=== PATIENT | male | born 1950 | race Caucasian/White ===

== ENCOUNTER 2018-08-05 13:41 | Outpatient (CLI) | payer MEDICARE ==
--- NOTE | 2018-08-05 16:43 | MRI ---
MRI LUMBAR SPINE WITH AND WITHOUT CONTRAST: INDICATIONS: Bilateral leg pain. COMPARISON: MRI lumbar spine without contrast, dated 06/12/2016. FINDINGS: There is stable grade 1 anterolisthesis of L4 and L5. There is stable post procedural change of lami nectomies at L4-L5 and a laminotomy at L3-L4. At the L5-S1 level, there has been interval development of an anterior and medially projecting synovi al cyst, protruding from the anterior medial margin of the right L5-S1 facet complex, measuring 1 cm, on image 47 of series 6. This causes moderate to severe narrowing of the right lateral recess, with potential for impingement of the traversing right L5 nerve root. There is advanced facet joint dege nerative change on the right and moderate on the left. There is no appreciable neural foraminal narr owing. At L4-L5, there is a broad-based bulge with facet hypertrophy, inducing stable, mild central canal na rrowing. The loss of disk space height, in addition to the broad-based disk bulge, induces moderate bilateral neural foraminal narrowing, which is stable to the prior exam. This is slightly greater on the left, just stable to the prior exam. At L3-L4, there is a broad-based disk bulge with a superimposed right paracentral protrusion that is stable to the prior exam, causing mild central canal narrowing with mild bilateral neural foraminal n arrowing. At L2-L3, there is a broad-based bulge with facet hypertrophy, inducing mild bilateral neural foramin al narrowing. This is stable to the prior exam. At L1-L2, there is a 2.4 x 0.6 cm T2 hyperintense, T1 hypointense, nonenhancing lesion within the rig ht posterolateral epidural space, extending out the neural foramina, on the right, at L1-L2. 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 The meningeal cyst is causing some moderat e mass effect on the exiting right L1 nerve root that appears similar to the prior exam. T12-L1: There is a mild broad-based disk bulge but no appreciable central canal or neural foraminal narrowing. IMPRESSION: 1. Interval development of anteromedially projecting synovial cyst from the right L5-S1 facet comple x, causing moderate to severe narrowing of the right lateral recess, with potential for impingement o f the traversing right L5 nerve root. 2. 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 This is causing moderate narrowing of the right L1-L2 neural foramina, that appears stable. 3. The moderate bilateral neural foraminal narrowing at L4-L5 is stable. 4. The mild bilateral neural foraminal narrowing at L3-L4 is similar appearing. 5. Mild central canal narrowing at L4-L5 is similar. POS: ARIANNA
== END 2018-08-05 13:42 | disposition home or self-care (01) ==
LOC: TBSIIMAG 13:41
PROVIDERS: ATTEND Anesthesiology Pain Medicine
DX: M51.16 Intervertebral disc disorders with radiculopathy, lumbar region (principal); M48.061 Spinal stenosis, lumbar region without neurogenic claudication; M71.38 Other bursal cyst, other site
CPT/HCPCS: 72158; 82565

== ENCOUNTER 2019-08-13 05:45 | Day surgery (SDC) | payer MEDICARE ==
[2019-08-12 10:35] VITALS: BMI 39.4
--- NOTE | 2019-08-12 13:20 | HP ---
HISTORY OF PRESENT ILLNESS: The patient is a 69-year-old male with several month history of pain and numbness in the median nerve distribution of both hands, left much greater than right without injury. He has had persistent symptoms despite rest, restriction of activities, and splinting. The symptoms are worse at night. He is not able to tolerate NSAIDs due to anaphylaxis. PAST MEDICAL HISTORY: The patient has history of diabetes, high cholesterol, hypothyroidism, and atrial fibrillation. He is currently not on anticoagulants. CURRENT MEDICATIONS: Include; 1. Metformin. 2. Synthroid. 3. Amiodarone. 4. Crestor. 5. Multivitamins. 6. Victoza. 7. Potassium. 8. Losartan. 9. Montelukast. 10. Loratadine. 11. Flomax. 12. Cialis. 13. Levothyroxine. 14. Gabapentin. ALLERGIES: HE IS ALLERGIC TO ALEVE AND NSAIDS, WHICH CAUSE ANAPHYLAXIS. CODEINE CAUSES NAUSEA. FAMILY HISTORY: Otherwise, unremarkable. SOCIAL HISTORY: Otherwise, unremarkable. REVIEW OF SYSTEMS: Otherwise, unremarkable. PHYSICAL EXAMINATION: GENERAL: Reveals a healthy male. HEENT: Unremarkable. NECK: Supple. CHEST: Clear. HEART: Regular rate and rhythm. ABDOMEN: Soft and nontender. RECTAL: Deferred. GENITAL: Deferred. EXTREMITIES: Pertinent findings to his wrists, there is no swelling. There is slight thenar atrophy on the left. No obvious atrophy of the right. There is no bony tenderness on the left side. There is tenderness over the median nerve. There is full range of motion bilaterally. There is mild stiffness of the fingers of the left hand. There is slight weakness of opposition on the left thumb. There is a positive Tinel's sign over the carpal tunnel and positive Phalen's test and pain with direct compression over the carpal tunnel on the left wrist. On the right side, there is pain with compression of the median nerve and equivocal Tinel's sign and equivocal Phalen's test. There is subjective numbness in the median nerve distribution bilaterally, left greater than right. There is good capillary refill. Electrodiagnostic studies performed by Dr. Yap reveal bilateral carpal tunnel syndrome, left greater than right. IMPRESSION: 1. Bilateral carpal tunnel syndrome, left greater than right. 2. Diabetes. 3. History of atrial fibrillation. 4. History of hypertension. 5. History of thyroid replacement. PLAN: Endoscopic possible open left carpal tunnel release. He may eventually require similar procedure on the right wrist. Nature of the surgery, length of recovery, and potential complications such as infection, loss of motion, incomplete relief, nerve injury, recurrence, need for additional treatment and repeat surgery have been discussed in detail. Job ID: [id number]
[2019-08-13 06:30] LABS: #Eosinphils 0.2 thou/uL (0.0-0.7); #Lymphocytes 2.2 thou/uL (1.20-3.40); #Monocytes 0.8 thou/uL (0.11-0.59); #Neutrophils 4.1 thou/uL (1.40-6.50); %Basophils 0.7 % (0.0-1.0); %Eosinophils 3.1 % (0.0-10.0); %Lymphocytes 29.5 % (21.0-51.0); %Monocytes 11.3 % (0.0-10.0); %Neutrophils 55.4 % (42.0-75.0); Hemoglobin 15.6 g/dL (14.0-18.0); Mean Corpuscular HGB CONC 32.5 g/dL (32.0-36.0); Mean Corpuscular Hemoglobin 32.9 pg (27.0-31.0); Mean Platelet Volume 7.2 fL (7.4-10.4); Platelet Count 268 thou/uL (130-400); RBC Distribution Width 12.7 % (11.5-14.5); Red Blood Cell (RBC) Count 4.73 mill/uL (4.70-6.10); White Blood Cell (WBC) Count 7.3 thou/uL (4.8-10.8)
[2019-08-13 06:46] LABS: Anion Gap 14 mmol/L (10-20); BUN (Urea Nitrogen) 9 mg/dL (8.4-25.7); Calc. Creatinine Clearance 154 mL/min (70-130); Carbon Dioxide 26 mmol/L (23-31); Chloride 102 mmol/L (98-107); Estimated GFR-MDRD Greater than 90; Glucose 117 mg/dL (80-115); Potassium 3.8 mmol/L (3.5-5.1); Sodium 138 mmol/L (136-145)
[2019-08-13] MEDS ORDERED: Lidocaine 1% (PF) 30 ML VIAL ONE (06:55)
[2019-08-13] MEDS ORDERED: Ketamine 50 MG/ML (10ML VIAL) ONE (07:28)
[2019-08-13] MEDS ORDERED: Propofol 500 MG/50 ML VIAL ONE (07:28)
[2019-08-13] MEDS ORDERED: Fentanyl 100 MCG/2 ML VIAL ONE (07:28)
[2019-08-13] MEDS ORDERED: Midazolam HCl 2 mg/2 ml Vial ONE (07:28)
--- NOTE | 2019-08-13 11:47 | OP ---
DATE OF PROCEDURE: 08/13/2019 PREOPERATIVE DIAGNOSIS: Left carpal tunnel syndrome. POSTOPERATIVE DIAGNOSIS: Left carpal tunnel syndrome. PROCEDURE PERFORMED: Left endoscopic carpal tunnel release. ANESTHESIA: Local plus TIVA. DESCRIPTION OF PROCEDURE: After satisfactory anesthesia was induced in supine position, the patient was prepped and draped in routine manner. A field block was accomplished with 1% plain lidocaine 10 mL. The left arm was elevated and exsanguinated with an Esmarch bandage and the tourniquet inflated to 250 mmHg. A 2-cm transverse incision was made at the proximal wrist flexion crease. This was carried down through the subcutaneous tissues and bleeding points were controlled with cautery. Using sharp and blunt dissection, a distally-based flap at the deep forearm fascia was developed and retracted distally. Palmaris longus tendon was retracted radially. The proximal edge of the deep forearm fascia was split under direct visualization with small scissors to make sure there was no proximal impingement of the median nerve. Synovial elevator was introduced beneath the transverse carpal ligament and the synovium cleaned from the under surface. Carpal tunnel dilators were inserted. The Epip[employer]tee endoscopic carpal tunnel system was introduced beneath the transverse carpal ligament in line with the ring finger. The distal edge of the ligament was easily identified and divided in a distal to proximal direction by pulling the trigger of the assembly, engaging the knife and withdrawing the scope proximally. This was done at several stages to make sure there was complete division of the transverse carpal ligament, which was documented with video printer. After withdrawing the scope, the carpal tunnel dilator could be inserted into the carpal tunnel and there was markedly improved passage and subcutaneous position of the instrument. The scope was reintroduced into the carpal tunnel. There was wide separation of the 2 leaves of the transverse carpal ligament. The tourniquet was released after 7 minutes. There was no excessive bleeding and the scope was withdrawn. The wound was thoroughly irrigated and then closed with running subcuticular 3-0 nylon. A sterile dressing was applied. The patient immobilized in a Velcro wrist splint. He was awakened and taken from the operating room in stable condition. There were no apparent intraoperative complications. The estimated blood loss was negligible. The patient will be discharged home in satisfactory condition, instructed on ice and elevation, given written wound care instructions. He was given a prescription for tramadol for pain, 20 tablets with one refill. He will be rechecked in my office in approximately 2 weeks or sooner if there are any problems prior to that times. Job ID: [id number]
== END 2019-08-13 09:58 | disposition home or self-care (01) ==
LOC: SDC 05:45
PROVIDERS: ATTEND Orthopaedic Surgery
PROC: 01N54ZZ Release Median Nerve, Percutaneous Endoscopic Approach (ICD-10-PCS; principal; 2019-08-13)
DX: G56.03 Carpal tunnel syndrome, bilateral upper limbs (principal); E11.9 Type 2 diabetes mellitus without complications; E78.00 Pure hypercholesterolemia, unspecified; E78.5 Hyperlipidemia, unspecified; E03.9 Hypothyroidism, unspecified; I48.91 Unspecified atrial fibrillation; I10 Essential (primary) hypertension; G47.30 Sleep apnea, unspecified; M19.90 Unspecified osteoarthritis, unspecified site; Z87.891 Personal history of nicotine dependence; Z79.84 Long term (current) use of oral hypoglycemic drugs; Z79.899 Other long term (current) drug therapy; Z88.5 Allergy status to narcotic agent; Z88.6 Allergy status to analgesic agent; Z99.89 Dependence on other enabling machines and devices
CPT/HCPCS: 36415; 80048; 85025; 93005; 93010; J0690; J2001; J2250; J2704; J3010

== ENCOUNTER 2019-11-14 07:06 | Outpatient (CLI) | payer MEDICARE, OTHER ==
[2019-11-14 13:51] LABS: #Basophils 0.1 thou/uL (0.0-0.2); #Eosinphils 0.1 thou/uL (0.0-0.7); #Lymphocytes 1.7 thou/uL (1.20-3.40); #Monocytes 0.8 thou/uL (0.11-0.59); #Neutrophils 5.1 thou/uL (1.40-6.50); %Basophils 0.7 % (0.0-1.0); %Eosinophils 1.6 % (0.0-10.0); %Lymphocytes 22.1 % (21.0-51.0); %Monocytes 10.1 % (0.0-10.0); %Neutrophils 65.5 % (42.0-75.0); Hemoglobin 16.6 g/dL (14.0-18.0); Mean Corpuscular HGB CONC 32.9 g/dL (32.0-36.0); Mean Corpuscular Hemoglobin 32.8 pg (27.0-31.0); Mean Corpuscular Volume 99.4 fL (78.0-98.0); Mean Platelet Volume 7.8 fL (7.4-10.4); Platelet Count 253 thou/uL (130-400); RBC Distribution Width 13.1 % (11.5-14.5); Red Blood Cell (RBC) Count 5.06 mill/uL (4.70-6.10); White Blood Cell (WBC) Count 7.8 thou/uL (4.8-10.8)
[2019-11-14 14:06] LABS: Anion Gap 15 mmol/L (10-20); BUN (Urea Nitrogen) 12 mg/dL (8.4-25.7); Calc. Creatinine Clearance 0 mL/min (70-130); Calcium 10.5 mg/dL (7.8-10.44); Carbon Dioxide 30 mmol/L (23-31); Chloride 99 mmol/L (98-107); Estimated GFR-MDRD 74; Glucose 107 mg/dL (80-115); Potassium 4.1 mmol/L (3.5-5.1); Sodium 140 mmol/L (136-145)
[2019-11-15 17:08] LABS: SARS-CoV-2 MS2 Positive; SARS-CoV-2 N Gene Negative; SARS-CoV-2 S Gene Negative; SARS-CoV-2 orf1ab Negative
--- NOTE | 2019-11-16 16:42 | EKG ---
Test Reason : Blood Pressure : / mmHG Vent. Rate : 094 BPM Atrial Rate : 094 BPM P-R Int : 000 ms QRS Dur : 096 ms QT Int : 382 ms P-R-T Axes : 000 071 038 degrees QTc Int : 477 ms Atrial fibrillaiton with premature ventricular complexes or aberrantly conducted complexes Otherwise normal ECG Confirmed by NINA BARLOW (2) on 11/16/2019 4:42:16 PM Referred By: Confirmed By:NINA BARLOW
== END 2019-11-14 07:07 | disposition home or self-care (01) ==
LOC: LABBT 07:06
PROVIDERS: ATTEND Orthopaedic Surgery
DX: Z01.818 Encounter for other preprocedural examination (principal); Z11.59 Encounter for screening for other viral diseases; G56.01 Carpal tunnel syndrome, right upper limb
CPT/HCPCS: 80048; 85025; 93005; U0003; 87635; 93010

== ENCOUNTER 2019-11-19 08:18 | Day surgery (SDC) | payer MEDICARE ==
[2019-11-14 12:47] VITALS: BMI 39.4
--- NOTE | 2019-11-18 13:38 | HP ---
HISTORY OF PRESENT ILLNESS: The patient is a 69-year-old male with a several month history of bilateral carpal tunnel syndrome unresponsive to conservative treatment. He underwent endoscopic left carpal tunnel release 3 months ago with good results, but continues to have symptoms of pain and tingling in his right hand despite restriction of activities and splinting. He is unable to tolerate NSAIDs because of anaphylaxis. PAST MEDICAL HISTORY: Please see the old chart. The patient also has diabetes, thyroid replacement, hypertension, and atrial fibrillation. CURRENT MEDICATIONS: 1. Metformin. 2. Synthroid. 3. . 4. Crestor. 5. Multivitamins. 6. Potassium. 7. Losartan. 8. Montelukast. 9. Loratadine. 10. Flomax. 11. Lasix. 12. Levothyroxine. 13. Gabapentin. ALLERGIES: HE IS ALLERGIC TO NSAIDS, WHICH CAUSE ANAPHYLAXIS AND CODEINE, WHICH CAUSES NAUSEA. PHYSICAL EXAMINATION: GENERAL: Reveals a healthy male. HEENT: Unremarkable. NECK: Supple. CHEST: Clear. HEART: Regular rate and rhythm. ABDOMEN: Soft and nontender. RECTAL: Deferred. GENITAL: Deferred. EXTREMITIES: Pertinent findings related to his right wrist; there is no swelling or atrophy. There is no bony tenderness. There is full range of motion. There is tenderness to palpation over the median nerve. There is equivocal Tinel sign and equivocal Phalen test. in the median nerve distribution. There is good capillary refill and good distal pulse. ELECTRODIAGNOSTIC STUDIES: Positive for bilateral carpal tunnel syndrome, left greater than right. IMPRESSION: 1. Right carpal tunnel syndrome. 2. Status post left carpal tunnel release. 3. History of diabetes. 4. History of atrial fibrillation. 5. 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 PLAN: Endoscopic possible open right carpal tunnel release. The nature of the surgery, length of recovery, and potential complications such as infection, loss of motion, incomplete relief, nerve injury, recurrence, need for additional treatment and repeat surgery have been discussed in detail. Job ID: [id number]
[2019-11-19] MEDS ORDERED: Fentanyl 100 MCG/2 ML VIAL ONE ×2 (10:21→11:39)
[2019-11-19] MEDS ORDERED: PROPOFOL 200 MG/20 ML VIAL ONE (11:51)
--- NOTE | 2019-11-19 11:56 | OP ---
DATE OF PROCEDURE: 11/19/2019 ANESTHESIA: General. PREOPERATIVE DIAGNOSIS: Right carpal tunnel syndrome. POSTOPERATIVE DIAGNOSIS: Right carpal tunnel syndrome. PROCEDURE PERFORMED: Right endoscopic carpal tunnel release. DESCRIPTION OF PROCEDURE: After satisfactory anesthesia was induced in supine position, the patient was prepped and draped in routine manner. The right arm was elevated and exsanguinated with an Esmarch bandage and the tourniquet inflated to 250 mmHg. A 2 cm transverse incision was made in the proximal wrist flexion crease, carried down through subcutaneous tissues and bleeding points were controlled with Bovie cautery. Using sharp and blunt dissection, a distally based flap at the deep forearm fascia was developed and retracted distally. Palmaris longus tendon was retracted radially. Proximal edge of the deep forearm fascia was split under direct visualization, making sure there was no proximal impingement of the median nerve. Synovial elevator was introduced beneath the transverse carpal ligament and the synovium cleaned from the under surface. Carpal tunnel dilators were inserted. The [place] endoscopic carpal tunnel system was introduced beneath the transverse carpal ligament inline with the ring finger. The distal edge of the ligament was easily identified and then divided in a distal to proximal direction by pulling the trigger of the assembly and engaging the knife and withdrawing the scope proximally. This was done in several stages to make sure there was complete division of the transverse carpal ligament, which was documented with the video printer. After withdrawing the scope, a carpal tunnel dilator could be inserted in the carpal tunnel. There was markedly improved passage and subcutaneous position of the instrument. The scope was reintroduced into the carpal tunnel. There was wide separation of the 2 leaves of the transverse carpal ligament. The tourniquet was released after 6 minutes. There was no excessive bleeding and the scope was withdrawn. The wound was thoroughly irrigated and closed with running subcuticular 3-0 nylon. A sterile dressing was applied and the patient was placed in a Velcro wrist splint and awakened and taken to the recovery room in stable condition. There were no apparent intraoperative complications. The estimated blood loss was negligible. The patient will be discharged home in satisfactory condition, instructed on ice and elevation, and given written wound care instructions. He has a prescription for tramadol for pain, 15 tablets. He will be rechecked in my office in 10 to 14 days or sooner if there are any problems prior to that time. Job ID: [id number]
== END 2019-11-19 13:19 | disposition home or self-care (01) ==
LOC: SDC 08:18
PROVIDERS: ATTEND Orthopaedic Surgery
PROC: 01N54ZZ Release Median Nerve, Percutaneous Endoscopic Approach (ICD-10-PCS; principal; 2019-11-19)
DX: G56.01 Carpal tunnel syndrome, right upper limb (principal); E11.9 Type 2 diabetes mellitus without complications; I48.91 Unspecified atrial fibrillation; I10 Essential (primary) hypertension; E78.00 Pure hypercholesterolemia, unspecified; Z79.84 Long term (current) use of oral hypoglycemic drugs; Z79.899 Other long term (current) drug therapy; Z88.5 Allergy status to narcotic agent; Z88.6 Allergy status to analgesic agent
CPT/HCPCS: J0690; J2704; J3010

== ENCOUNTER 2022-01-24 10:25 | Outpatient (CLI) | payer MEDICARE, BC | END 2022-01-24 10:26 | disposition home or self-care (01) | LOC: TBSIIMAG 10:25 | PROVIDERS: ATTEND Anesthesiology Pain Medicine | DX: M47.26 Other spondylosis with radiculopathy, lumbar region (principal); M43.16 Spondylolisthesis, lumbar region; M48.061 Spinal stenosis, lumbar region without neurogenic claudication; M48.07 Spinal stenosis, lumbosacral region | CPT/HCPCS: 72100; 72148 ==

== ENCOUNTER 2022-03-20 12:52 | Outpatient (CLI) | payer MEDICARE, BC | END 2022-03-20 12:53 | disposition home or self-care (01) | LOC: BICCT 12:52 | PROVIDERS: ATTEND Surgery | DX: M47.26 Other spondylosis with radiculopathy, lumbar region (principal); M48.061 Spinal stenosis, lumbar region without neurogenic claudication; Z98.890 Other specified postprocedural states | CPT/HCPCS: 72131 ==

== ENCOUNTER 2022-05-04 07:43 | Inpatient (IN) | payer MEDICARE, BC ==
[2022-05-01 12:07] LABS: Hemoglobin 14.1 g/dL (13.5-17.5); Mean Corpuscular HGB CONC 32.9 g/dL (32.0-36.0); Mean Corpuscular Hemoglobin 32.9 pg (27.0-33.0); Mean Platelet Volume 9.8 fl (7.4-10.4); Platelet Count 216 10x3/uL (150-450); RBC Distribution Width 13.1 % (11.5-14.5); Red Blood Cell (RBC) Count 4.28 10x6/uL (4.32-5.72); White Blood Cell (WBC) Count 6.8 10x3/uL (3.5-10.5)
[2022-05-01 12:36] LABS: INR-International Normal Ratio 0.9; Prothrombin Time 10.3 sec (9.5-12.1)
[2022-05-01 12:44] LABS: Anion Gap 14 mmol/L (10-20); BUN (Urea Nitrogen) 15 mg/dL (8.4-25.7); Calc. Creatinine Clearance 0 mL/min (70-130); Calcium 9.7 mg/dL (7.8-10.44); Carbon Dioxide 27 mmol/L (23-31); Chloride 105 mmol/L (98-107); Estimated GFR 86; Glucose 152 mg/dL (83-110); Potassium 4.6 mmol/L (3.5-5.1); Sodium 141 mmol/L (136-145)
[2022-05-03 10:26] VITALS: BMI 38.7
[2022-05-04] MEDS ORDERED: fentaNYL Citrate/PF 100 MCG/2 ML SYRINGE ONE (08:29)
[2022-05-04] MEDS ORDERED: Thrombin 5000 UNITS/5 ML VIAL ONE ×3 (09:44→13:25)
[2022-05-04] MEDS ORDERED: Sodium Chloride 0.9% 100 ML ONE (10:13)
[2022-05-04] MEDS ORDERED: CEFAZOLIN 2 GM VIAL ONE (10:13)
[2022-05-04] MEDS ORDERED: NEOSTIGMINE 3 MG/3 ML SYR 3 MG/3 ML SYRINGE ONE (10:24)
[2022-05-04] MEDS ORDERED: ePHEDrine 50 MG/ML VIAL ONE (10:24)
[2022-05-04] MEDS ORDERED: Rocuronium Bromide 10 MG/ML (10ML VIAL) ONE (10:24)
[2022-05-04] MEDS ORDERED: Ondansetron PF 4 MG/2 ML Vial ONE (10:24)
[2022-05-04] MEDS ORDERED: PROPOFOL 200 MG/20 ML VIAL ONE (10:24)
[2022-05-04] MEDS ORDERED: Glycopyrrolate 0.2 MG/ML 5 ML SYRINGE ONE (10:24)
[2022-05-04] MEDS ORDERED: Dexamethasone 20 MG/5 ML VIAL ONE (10:24)
[2022-05-04] MEDS ORDERED: Acetaminophen 325 MG TAB PO PRN (15:46)
[2022-05-04] MEDS ORDERED: Ondansetron PF 4 MG/2 ML Vial IVP PRN ×2 (15:46→15:52)
[2022-05-04] MEDS ORDERED: diphenhydrAMINE 25 MG CAP PO PRN ×2 (15:46→15:52)
[2022-05-04] MEDS ORDERED: HYDROmorphone 2 MG/ML VIAL SLOW IVP PRN (15:51)
[2022-05-04] MEDS ORDERED: Promethazine HCl 25 MG/ML VIAL IM PRN ×2 (15:51→15:52)
[2022-05-04] MEDS ORDERED: Ondansetron HCl/PF 4 MG/2 ML Vial IVP PRN (15:51)
[2022-05-04] MEDS ORDERED: Promethazine HCl 25 MG/ML VIAL IVPB PRN (15:51)
[2022-05-04] MEDS ORDERED: Morphine Sulfate 2 MG/ML SYRINGE SLOW IVP PRN (15:51)
[2022-05-04] MEDS ORDERED: PACU-Morphine 4MG/ML VIAL SLOW IVP PRN (15:51)
[2022-05-04] MEDS ORDERED: Diazepam 5 MG TAB PO PRN (15:52)
[2022-05-04] MEDS ORDERED: Polyethylene Glycol 3350 17 GM Packet PO PRN (15:52)
[2022-05-04] MEDS ORDERED: diphenhydrAMINE 50 MG/ML VIAL IM PRN (15:52)
[2022-05-04] MEDS ORDERED: hydrALAZINE 20 MG/ML VIAL SLOW IVP PRN (15:52)
[2022-05-04] MEDS ORDERED: HYDROmorphone 10 mg/100 ml CADD IVPB PRN (15:52)
[2022-05-04] MEDS ORDERED: diphenhydrAMINE 50 MG/ML VIAL IVP PRN (15:52)
[2022-05-04] MEDS ORDERED: Bisacodyl 5 MG TAB PO PRN (15:52)
[2022-05-04] MEDS ORDERED: Zolpidem Tartrate 5 MG TAB PO PRN (15:52)
[2022-05-04] MEDS ORDERED: Promethazine HCl 12.5 MG in Sodium Chloride 0.9% 50 ML IVPB PRN (15:52)
[2022-05-04] MEDS ORDERED: Naloxone HCl 0.4 mg/ml Vial IV PRN (15:52)
[2022-05-04] MEDS ORDERED: Communication Order-Pharmacy FS SCH (16:00)
[2022-05-04] MEDS ORDERED: FENTANYL 50 MCG/ML VIAL 50 MCG/ML VIAL ONE ×2 (16:08→16:19)
[2022-05-04] MEDS ORDERED: HYDROmorphone/PF 10 MG in Sodium Chloride 0.9% 99 ML IVPB PRN (16:15)
[2022-05-04] MEDS ORDERED: HYDROmorphone 0.5 MG/0.5 ML SYRINGE ONE (16:34)
[2022-05-04] MEDS ORDERED: CEFAZOLIN 2 GM in Sodium Chloride 0.9% 100 ML IVPB SCH (18:00)
[2022-05-04] MEDS: Rosuvastatin 20 MG TAB PO SCH (21:05)
[2022-05-04] MEDS: Carvedilol 3.125 MG TAB PO SCH (21:05)
[2022-05-04] MEDS: CEFAZOLIN 2 GM in Sodium Chloride 0.9% 100 ML IVPB SCH (21:05)
[2022-05-04] MEDS: Gabapentin 300 MG CAP PO SCH (21:06)
[2022-05-04] MEDS: Calcium Carbonate + Vit D 250 MG TAB PO SCH (21:06)
[2022-05-04] MEDS: Docusate 100 MG CAP PO SCH (21:07)
[2022-05-04] MEDS: Montelukast Sodium 10 mg Tablet PO SCH (21:07)
[2022-05-04] MEDS: Tamsulosin HCl 0.4 MG CAP PO SCH (21:09)
[2022-05-04] MEDS: Sodium Chloride 0.9% 1,000 ML IV SCH (21:12)
[2022-05-05 05:56] LABS: #Lymphocytes 0.5 thou/uL (1.20-3.40); #Monocytes 1.1 thou/uL (0.11-0.59); #Neutrophils 9.7 thou/uL (1.40-6.50); %Eosinophils 0.2 % (0.0-10.0); %Lymphocytes 4.8 % (21.0-51.0); %Monocytes 9.3 % (0.0-10.0); %Neutrophils 85.8 % (42.0-75.0); Hemoglobin 12.4 g/dL (14.0-18.0); Mean Corpuscular HGB CONC 31.1 g/dL (32.0-36.0); Mean Corpuscular Hemoglobin 32.3 pg (27.0-31.0); Mean Platelet Volume 7.7 fL (7.4-10.4); Platelet Count 195 thou/uL (130-400); RBC Distribution Width 12.4 % (11.5-14.5); Red Blood Cell (RBC) Count 3.85 mill/uL (4.70-6.10); White Blood Cell (WBC) Count 11.3 thou/uL (4.8-10.8)
[2022-05-05 06:16] LABS: Anion Gap 15 mmol/L (10-20); BUN (Urea Nitrogen) 13 mg/dL (8.4-25.7); Calc. Creatinine Clearance 112 mL/min (70-130); Calcium 8.4 mg/dL (7.8-10.44); Carbon Dioxide 22 mmol/L (23-31); Chloride 104 mmol/L (98-107); Estimated GFR 78; Glucose 344 mg/dL (83-110); Potassium 4.1 mmol/L (3.5-5.1); Sodium 137 mmol/L (136-145)
[2022-05-05] MEDS: Sodium Chloride 0.9% 1,000 ML IV SCH ×2 (06:20→17:20)
[2022-05-05] MEDS ORDERED: Diazepam 5 MG TAB PO PRN (07:14)
[2022-05-05] MEDS ORDERED: Morphine 2 MG/ML VIAL SLOW IVP PRN (08:04)
[2022-05-05] MEDS ORDERED: HYDROcodone/Acetaminophen 7.5/325 mg Tablet PO PRN (08:04)
[2022-05-05] MEDS ORDERED: traMADol HCl 50 MG TAB PO PRN (08:04)
[2022-05-05] MEDS ORDERED: Morphine 4 MG/ML VIAL SLOW IVP PRN (08:16)
[2022-05-05] MEDS ORDERED: ARGININE 500 MG PO SCH (09:00)
[2022-05-05] MEDS: Docusate 100 MG CAP PO SCH ×2 (10:09→20:23)
[2022-05-05] MEDS: Empagliflozin 10 MG TAB PO SCH (10:09)
[2022-05-05] MEDS: Cholecalciferol 1,000 UNITS (25 MCG) TAB PO SCH (10:10)
[2022-05-05] MEDS: Cyanocobalamin (Vitamin B-12) 1,000 MCG TAB PO SCH (10:11)
[2022-05-05] MEDS: Carvedilol 3.125 MG TAB PO SCH ×2 (10:11→20:23)
[2022-05-05] MEDS: Multivitamin W/ Minerals 1 TAB PO SCH (10:11)
[2022-05-05] MEDS: Calcium Carbonate + Vit D 250 MG TAB PO SCH ×2 (10:11→20:23)
[2022-05-05] MEDS: Ascorbic Acid 500 mg Chewable Tablet PO SCH (10:12)
[2022-05-05] MEDS: Levothyroxine Sodium 112 MCG TAB PO SCH (10:12)
[2022-05-05] MEDS: Loratadine 10 MG TAB PO SCH (10:12)
[2022-05-05] MEDS: Amiodarone 200 MG TAB PO SCH (10:13)
[2022-05-05] MEDS: Losartan 25 MG TAB PO SCH (10:13)
[2022-05-05] MEDS ORDERED: Insulin Regular 300 UNITS/3 ML VIAL SC PRN ×2 (13:38→14:00)
[2022-05-05] MEDS ORDERED: Dextrose 5% in Water 1,000 ML IV PRN (14:00)
[2022-05-05] MEDS ORDERED: Dextrose 50% Abboject 50 ML SYRINGE IVP PRN (14:00)
[2022-05-05] MEDS: traMADol HCl 50 MG TAB PO PRN ×2 (17:19→23:30)
[2022-05-05] MEDS: Gabapentin 300 MG CAP PO SCH (20:23)
[2022-05-05] MEDS: Rosuvastatin 20 MG TAB PO SCH (20:24)
[2022-05-05] MEDS: Tamsulosin HCl 0.4 MG CAP PO SCH (20:24)
[2022-05-05] MEDS: Montelukast Sodium 10 mg Tablet PO SCH (20:24)
[2022-05-06] MEDS: CEFAZOLIN 2 GM in Sodium Chloride 0.9% 100 ML IVPB SCH ×2 (05:07→12:43)
[2022-05-06] MEDS: traMADol HCl 50 MG TAB PO PRN ×2 (05:13→11:12)
[2022-05-06 08:52] VITALS: TEMP 97.8
[2022-05-06] MEDS: Sodium Chloride 0.9% 1,000 ML IV SCH (09:26)
[2022-05-06] MEDS: Ascorbic Acid 500 mg Chewable Tablet PO SCH (09:28)
[2022-05-06] MEDS: Carvedilol 3.125 MG TAB PO SCH (09:28)
[2022-05-06] MEDS: Losartan 25 MG TAB PO SCH (09:28)
[2022-05-06] MEDS: Loratadine 10 MG TAB PO SCH (09:29)
[2022-05-06] MEDS: Docusate 100 MG CAP PO SCH (09:29)
[2022-05-06] MEDS: Cyanocobalamin (Vitamin B-12) 1,000 MCG TAB PO SCH (09:29)
[2022-05-06] MEDS: Calcium Carbonate + Vit D 250 MG TAB PO SCH (09:29)
[2022-05-06] MEDS: Cholecalciferol 1,000 UNITS (25 MCG) TAB PO SCH (09:29)
[2022-05-06] MEDS: Levothyroxine Sodium 112 MCG TAB PO SCH (09:29)
[2022-05-06] MEDS: Multivitamin W/ Minerals 1 TAB PO SCH (09:29)
[2022-05-06] MEDS: Empagliflozin 10 MG TAB PO SCH (09:29)
[2022-05-06] MEDS: Amiodarone 200 MG TAB PO SCH (09:29)
[2022-05-06 12:11] VITALS: BP 111/69
== END 2022-05-06 12:14 | disposition home or self-care (01) | DRG 460 ==
LOC: SDC 07:43 → SURG A 17:57 → OBSVTOIN 05-05 13:40
PROVIDERS: ADMIT Surgery; ATTEND Surgery
PROC: 0SG00AJ Fusion of Lumbar Vertebral Joint with Interbody Fusion Device, Posterior Approach, Anterior Column, Open Approach (ICD-10-PCS; principal; 2022-05-05)
PROC: 01NB0ZZ Release Lumbar Nerve, Open Approach (ICD-10-PCS; 2022-05-05)
DX: M48.062 Spinal stenosis, lumbar region with neurogenic claudication (principal); M51.26 Other intervertebral disc displacement, lumbar region; M43.16 Spondylolisthesis, lumbar region; I48.91 Unspecified atrial fibrillation; E11.9 Type 2 diabetes mellitus without complications; I10 Essential (primary) hypertension; E78.5 Hyperlipidemia, unspecified; E03.9 Hypothyroidism, unspecified; Z79.82 Long term (current) use of aspirin; Z87.891 Personal history of nicotine dependence; Z79.899 Other long term (current) drug therapy; Z79.890 Hormone replacement therapy; Z79.01 Long term (current) use of anticoagulants; Z79.84 Long term (current) use of oral hypoglycemic drugs; Z88.5 Allergy status to narcotic agent; Z88.6 Allergy status to analgesic agent
CPT/HCPCS: 36415; 36416; 80048; 85025; 85027; 85610; 85730; 86850; 86900; 86901; 96374; C1713; C1776; G0378; J1100; J1170; J2405; J2704; J3010; J3370; J3490; J7050

== ENCOUNTER 2022-06-12 11:15 | Outpatient (CLI) | payer MEDICARE, BC | END 2022-06-12 11:16 | disposition home or self-care (01) | LOC: TBSIIMAG 11:15 | PROVIDERS: ATTEND Surgery | DX: M54.16 Radiculopathy, lumbar region (principal); Z98.1 Arthrodesis status | CPT/HCPCS: 72100 ==